=== PATIENT | male | born 2000 | race Caucasian/White ===

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

== ENCOUNTER 2020-09-19 16:36 | Outpatient (CLI) | payer OTHER | END 2020-09-19 16:37 | disposition home or self-care (01) | LOC: COV 16:36 | PROVIDERS: ATTEND Family Medicine | DX: Z20.828 Contact with and (suspected) exposure to other viral communicable diseases (principal) ==

== ENCOUNTER 2021-02-01 00:26 | Emergency (ER) | payer OTHER ==
[2021-02-01] MEDS ORDERED: SILVER SULFADIAZINE CREAM 25 GM TUBE TOP STA (00:50)
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
[2021-02-01 01:44] VITALS: BP 132/61
== END 2021-02-01 01:44 | disposition home or self-care (01) ==
LOC: ED 00:26
DX: T22.211A Burn of second degree of right forearm, initial encounter (principal); T23.251A Burn of second degree of right palm, initial encounter; T22.111A Burn of first degree of right forearm, initial encounter; T23.151A Burn of first degree of right palm, initial encounter; W01.0XXA Fall on same level from slipping, tripping and stumbling without subsequent striking against object, initial encounter; X02.8XXA Other exposure to controlled fire in building or structure, initial encounter; Y93.9 Activity, unspecified; Y92.89 Other specified places as the place of occurrence of the external cause
CPT/HCPCS: 99282; A9270

== ENCOUNTER 2022-01-09 16:22 | Observation (INO) | payer OTHER ==
[2022-01-09 16:36] LABS: BASOPHILS % (AUTO) 0.2 %; EOSINOPHILS % (AUTO) 0.4 %; HCT - HEMATOCRIT 47.1 % (42.0-52.0); HGB - HEMOGLOBIN 16.1 g/dL (14.0-18.0); LYMPHOCYTES # (AUTO) 3.5 10^3/uL (1.5-3.5); LYMPHOCYTES % (AUTO) 32.7 %; MEAN CORPUSCULAR HEMOGLOBIN 30.2 pg (27.0-31.0); MEAN CORPUSCULAR HGB CONC 34.2 g/dL (32.0-36.0); MEAN CORPUSCULAR VOLUME 88.4 fL (80.0-94.0); MEAN PLATELET VOLUME 9.5 fL (7.4-11.4); MONOCYTES # (AUTO) 0.5 10^3/uL (0.0-1.0); MONOCYTES % (AUTO) 4.9 %; NEUTROPHILS # (AUTO) 6.6 10^3/uL (1.5-6.6); NEUTROPHILS % (AUTO) 61.6 %; PLT - PLATELET COUNT 249 10^3/uL (130-450); RED BLOOD COUNT 5.33 10^6/uL (4.70-6.10); WHITE BLOOD COUNT 10.7 x10^3/uL (4.8-10.8)
--- NOTE | 2022-01-09 16:45 | ED Physician Documentation ---
PD HPI ABD PAIN - Stated complaint Stated Complaint: R SIDE ABD PX - Chief complaint Chief Complaint: Abd Pain - History obtained from History obtained from: Patient - Additional information Additional information: RLQ pain x7 days ago. Started just feeling uneasy, but more pain starting Wednesday, 5 days ago. Radiates towards umbilicus. Constant twisting/pressure sensation. 3/10 pain. Worse with flat, jumping or upright position. Btter with heat and position. Increased pressure with urinartion but no dysuria. Had some loose stools without diarrhea. Pain worse yesterday. Review of Systems Ten Systems: 10 systems reviewed and negative Constitutional: denies: Fever, Chills GI: reports: Abdominal Pain. denies: Nausea, Vomiting PD PAST MEDICAL HISTORY - Past Surgical History Past Surgical History: Yes HEENT: Tonsil/Adenoidectomy - Present Medications Home Medications: Ambulatory Orders Medication Instructions Recorded Confirmed No Known Home Medications 01/09/22 01/09/22 - Allergies Allergies/Adverse Reactions: Allergies Allergy/AdvReac Type Severity Reaction Status Date / Time No Known Drug Allergies Allergy Verified 01/09/22 16:31 - Social History Does the pt smoke?: No Smoking Status: Never smoker Does the pt drink ETOH?: No Does the pt have substance abuse?: No - Immunizations Immunizations are current?: Yes PD ED PE NORMAL - Vitals Vital signs reviewed: Yes - General General: Alert and oriented X 3, No acute distress - HEENT HEENT: PERRL, EOMI - Neck Neck: Supple, no meningeal sign, No bony TTP - Cardiac Cardiac: RRR, No murmur - Respiratory Respiratory: No respiratory distress, Clear bilaterally - Abdomen Abdomen: Normal bowel sounds, Soft, Other (Focally tender in the right lower quadrant with positive Rovsing sign and positive heeltap, negative obturator sign.) - Back Back: No CVA TTP, No spinal TTP - Derm Derm: Normal color, Warm and dry - Extremities Extremities: No edema, No calf tenderness / cord - Neuro Neuro: Alert and oriented X 3, Normal speech Results - Vitals Vitals: Vital Signs - 24 hr 01/09/22 01/09/22 16:25 16:37 Temperature 36.8 C Heart Rate 75 Respiratory 19 14 Rate Blood Pressure 134/85 H O2 Saturation 100 Oxygen O2 Source Room air - Labs Labs: Laboratory Tests 01/09/22 01/09/22 01/09/22 16:30 16:30 16:47 WBC 10.7 RBC 5.33 Hgb 16.1 Hct 47.1 MCV 88.4 MCH 30.2 MCHC 34.2 RDW 12.0 Plt Count 249 MPV 9.5 Neut # (Auto) 6.6 Lymph # (Auto) 3.5 [place] # (Auto) 0.5 Eos # (Auto) 0.0 Baso # (Auto) 0.0 Absolute Nucleated RBC 0.00 Nucleated RBC % 0.0 Sodium 138 Potassium 3.8 Chloride 101 Carbon Dioxide 28 Anion Gap 9.0 BUN 16 Creatinine 0.8 Estimated GFR (MDRD) 122 Glucose 92 Calcium 9.4 Total Bilirubin 0.9 AST 22 ALT 34 Alkaline Phosphatase 59 Total Protein 8.0 Albumin 4.6 Globulin 3.4 Albumin/Globulin Ratio 1.4 Lipase 27 Urine Color YELLOW Urine Clarity CLEAR Urine pH 6.0 Ur Specific [place] 1.025 Urine Protein NEGATIVE Urine Glucose (UA) NEGATIVE Urine Ketones TRACE Urine Occult Blood NEGATIVE Urine Nitrite NEGATIVE Urine Bilirubin NEGATIVE Urine Urobilinogen 0.2 (NORMAL) Ur Leukocyte Esterase NEGATIVE Ur Microscopic Review NOT INDICATED Urine Culture Comments NOT INDICATED PD MEDICAL DECISION MAKING - ED course ED course: This is a young man with potential appendicitis and on CT my "wet read" shows unruptured appendicitis. I spoke with Dr. Hays, our on-call surgeon around 5:20 PM and he will come and see the patient. Departure - Departure Disposition: ED Transfer to [facility] Clinical Impression: Appendicitis Qualifiers: Appendicitis type: acute appendicitis Acute appendicitis type: with localized peritonitis Appendicitis gangrene presence: without gangrene Appendicitis perforation presence: without perforation Appendicitis abscess presence: without abscess Qualified Code(s): K35.30 - Acute appendicitis with localized peritonitis, without perforation or gangrene Condition: Stable
[2022-01-09 16:48] LABS: ALBUMIN 4.6 g/dL (3.2-5.5); ALBUMIN/GLOBULIN RATIO 1.4 (1.0-2.2); BILIRUBIN,TOTAL 0.9 mg/dL (0.2-1.0); CALCIUM 9.4 mg/dL (8.5-10.3); CREATININE 0.8 mg/dL (0.6-1.2); POTASSIUM 3.8 mmol/L (3.5-5.0)
[2022-01-09 16:53] LABS: BILIRUBIN,URINE NEGATIVE (NEGATIVE); GLUCOSE, URINE (UA) NEGATIVE (NEGATIVE); KETONES,URINE (UA) TRACE mg/dL (NEGATIVE); LEUKOCYTE ESTERASE, URINE NEGATIVE (NEGATIVE); NITRITE,URINE NEGATIVE (NEGATIVE); OCCULT BLOOD,URINE NEGATIVE (NEGATIVE); PROTEIN,URINE NEGATIVE (NEGATIVE); UROBILINOGEN,URINE 0.2 (NORMAL) E.U./dL (NORMAL)
[2022-01-09 16:54] LABS: CLARITY,URINE CLEAR (CLEAR)
[2022-01-09] MEDS ORDERED: IOVERSOL 320 100 ML VIAL IVP ONE ×2 (17:06→17:17)
[2022-01-09] MEDS ORDERED: PIPERACILLIN/TAZOBACTAM 3.375 GM in SODIUM CHLORIDE 0.9% MINIBAG 100 ML IV STA ×2 (17:19→18:27)
--- NOTE | 2022-01-09 18:02 | CT Report ---
PROCEDURE: Abdomen/Pelvis W INDICATIONS: RLQ pain CONTRAST: IV CONTRAST: Optiray 320 ml: 100 PO CONTRAST: *NO PO CONTRAST TECHNIQUE: After the administration of intravenous contrast, 5 mm thick sections acquired from the diaphragms to the symphysis. 5 mm thick coronal and sagittal reformats were acquired. For radiation dose reducti on, the following was used: automated exposure control, adjustment of mA and/or kV according to osiel ent size. COMPARISON: CT abdomen pelvis 08/01/2013. FINDINGS: Image quality: Excellent. ABDOMEN: Lung bases: There is a small pulmonary nodule in the left lower lobe measuring up to 0.5 cm which mary ears unchanged from the prior study. Heart size is normal. Solid organs: Evaluation of the liver demonstrates no focal hepatic lesions. Gallbladder appears wit hin normal limits without calcified gallstones. Biliary system is non dilated. The spleen is normal in size. Pancreas enhances normally without peripancreatic fat stranding or fluid collections. No ad renal nodules. Kidneys demonstrate no hydronephrosis. Peritoneum and bowel: Bowel loops demonstrate normal wall thickness and caliber. The appendix is th ick-walled, measuring up to 1 cm in diameter, with appendiceal fat stranding consistent with acute ap pendicitis. No free fluid or air. No abscess collection. Nodes and vessels: No retroperitoneal or mesenteric adenopathy by size criteria. Aorta and inferior vena cava are normal in size. Miscellaneous: No ventral hernias. PELVIS: Genitourinary: Bladder wall thickness is normal. Miscellaneous: No inguinal hernias or adenopathy. Bones: No suspicious bony lesions. No vertebral body compression fractures. IMPRESSION: 1. Findings consistent with acute appendicitis without evidence of perforation. Findings discussed with Dr. Henderson on 01/09/2022 at 5:57 PM. Reviewed by: Mitchell Jones MD on 01/09/2022 6:01 PM PST Approved by: Mitchell Jones MD on 01/09/2022 6:01 PM PST Station ID: [id number]
--- NOTE | 2022-01-09 18:12 | SURGERY HX AND PHYSICAL(T) ---
Surgical History & Physical - Chief Complaint/HPI Chief Complaint: abdominal pain History of Present Illness: 21 M with hx tonsillectomy who presents with abdominal pain. Pain started ~01/03 or 01/04, vague but in RLQ. Wednesday worsened and slowly worsened since then and more focal. Still only 2-3/10 intensity at rest, aggravated with activity. No f/c or n/v but does endorse looser stools the last few days. Interestingly, says he has had similar episodes twice in his life, once around 10 yoa and again in his teens, but was given different diagnoses (presumably gastroenteritis). In ED he is afebrile, normotensive, not tachycardic. Pain mild but focal RLQ. Labs notable for WBC 10.7, CT with acute uncomplicated appendicitis. - PMH/PSH/Social Hx Does the pt have a hx of MRSA?: No Eyes, Ears, Nose, Throat: Other (hx tonsillectomy) Eyes Ears Nose Throat (EENT): Tonsil/Adenoidectomy Smoking Status: Never smoker Does the pt drink ETOH?: No Does the pt have substance abuse?: No - Home Meds and Allergies Home Medications: No Known Home Medications 01/09/22 Allergies/Adverse Reactions: Allergies Allergy/AdvReac Type Severity Reaction Status Date / Time No Known Drug Allergies Allergy Verified 01/09/22 16:31 - Review of Systems Constitutional: No: Fever, Chills HEENT: No: Headaches, Visual changes Skin: No: Jaundice Cardiac: No: CHF, MO, Syncope Gastrointestinal: Abdominal pain, Other (loose stool). No: Nausea, Vomiting Gentinourinary: No: Frequency, Burning Neurological: No: Dizziness, Headache Musculoskeletal: No: Muscle pain, Back pain Hematologic: No: Anemia Psychiatric: No: Anxiety Endocrinologic: No: Polyuria Allergies: No: Asthma - Vital Signs Heart Rate: 75 Blood Pressure: 134/85 Temperature: 36.8 C Respiratory Rate: 14 O2 Saturation: 100 Weight (kg): 90.718 kg Height: 1.85 m - Physical Exam General Appearance: positive: No acute distress Eyes Bilatera: positive: EOMI ENT: positive: Other (atraumatic, normocephalic) Respiratory: positive: No respiratory distress Cardiovascular: positive: Regular rate & rhythm Peripheral Pulses: positive: 2+ Abdomen: positive: Other (soft, non-distended, mild TTP in RLQ, no rebound or guarding, no scars) Skin: positive: Warm, Dry Extremities: negative: Pedal edema Neurologic/Psychiatric: positive: Oriented x3, Other (appropriate mood and affect) - Patient Review Patient Review: Problems were reviewed with the patient during this visit. Medications were reviewed with the patient during this visit. Allergies were reviewed this patient during this visit. Pertinent Tests Reviewed: All pertitent test for this patient were reviewed. - Assessment & Plan Assessment and Plan: 21 yo M presents with 5 days abd pain, found to have uncomplicated acute appendicitis on CT. - clears until midnight then NPO after midnight - started zosyn in ED, will continue - IV pain meds - zofran prn - plan to OR in the am for lap appy - risks including but not limited to bleeding, pain, infection, damage to surrounding structures, post-op abscess discussed with patient who consents to proceed. Informed consent signed in ED and left in chart. Adarsh Hays General Surgery
[2022-01-09] MEDS ORDERED: SODIUM CHLORIDE FLUSH 0.9% 10 ML SYRINGE IVP PRN (18:21)
[2022-01-09] MEDS ORDERED: ONDANSETRON 4 MG/2 ML VIAL IVP PRN ×2 (18:21→20:24)
[2022-01-09] MEDS ORDERED: MORPHINE 2 MG/ML CARPUJECT IVP PRN ×2 (18:21→20:24)
[2022-01-09] MEDS ORDERED: ACETAMINOPHEN 325 MG TABLET PO PRN (18:21)
[2022-01-09] MEDS: LACTATED RINGERS 1,000 ML IV SCH ×2 (19:17→22:45)
[2022-01-09] MEDS: HEPARIN 5,000 UNIT/ML VIAL SUBQ SCH (19:49)
[2022-01-09] MEDS ORDERED: MIDAZOLAM 2 MG/2 ML VIAL ONE ×2 (20:03→21:02)
[2022-01-09] MEDS ORDERED: fentaNYL 100 MCG/2 ML VIAL ONE ×2 (20:03→21:40)
[2022-01-09] MEDS ORDERED: LIDOCAINE-MPF 2% 5 ML VIAL ONE (20:05)
[2022-01-09] MEDS ORDERED: ROCURONIUM 50 MG/5 ML VIAL ONE (20:05)
[2022-01-09] MEDS ORDERED: ONDANSETRON 4 MG/2 ML VIAL ONE (20:05)
[2022-01-09] MEDS ORDERED: DEXAMETHASONE 4 MG/ML VIAL ONE (20:05)
[2022-01-09] MEDS ORDERED: PROPOFOL 200 MG/20 ML VIAL IVP ONE ×2 (20:05→21:40)
[2022-01-09] MEDS ORDERED: SUGAMMADEX 200 MG/2 ML VIAL IVP ONE (20:05)
[2022-01-09] MEDS ORDERED: SUCCINYLCHOLINE 200 MG/10 ML VIAL ONE (20:05)
[2022-01-09] MEDS ORDERED: LIDOCAINE 2%-EPI 1:100000 20 ML MDV ONE (20:07)
[2022-01-09] MEDS ORDERED: BUPIVACAINE 0.5% PF 10 ML VIAL ONE (20:07)
[2022-01-09] MEDS ORDERED: NALOXONE 0.4 MG/ML VIAL IVP PRN (20:24)
[2022-01-09] MEDS ORDERED: ePHEDrine 50 MG/ML VIAL IVP PRN (20:24)
[2022-01-09] MEDS ORDERED: fentaNYL 100 MCG/2 ML VIAL IVP PRN (20:24)
[2022-01-09] MEDS ORDERED: METOCLOPRAMIDE 10 MG/2 ML VIAL IVP PRN (20:24)
[2022-01-09] MEDS ORDERED: HYDROmorphone 0.5 MG/0.5 ML SYRINGE IVP PRN (20:24)
[2022-01-09] MEDS ORDERED: ATROPINE ABBOJECT 1 MG/10 ML SYRINGE IVP PRN (20:24)
--- NOTE | 2022-01-09 20:24 | ANESTHESIA ---
Pre-Anesthesia VS, & Labs - Diagnosis appendicitis - Procedure lap appendectomy Vital Signs: Temp Pulse Resp BP Pulse Ox 36.7 C 57 L 20 131/65 H 99 01/09/22 19:00 01/09/22 19:00 01/09/22 19:00 01/09/22 19:00 01/09/22 19:00 Height: 6 ft 1 in Weight (kg): 90 kg Body Mass Index: 26.2 BMI Classification: Overweight - NPO Other Last Fluid Intake: 2100 Last Food Intake: 1200 - Lab Results Current Lab Results: Laboratory Tests 01/09/22 16:30: Sodium 138, Potassium 3.8, Chloride 101, Carbon Dioxide 28, Anion Gap 9.0, BUN 16, Creatinine 0.8, Estimated GFR (MDRD) 122, Glucose 92, Calcium 9.4, Total Bilirubin 0.9, AST 22, ALT 34, Alkaline Phosphatase 59, Total Protein 8.0, Albumin 4.6, Globulin 3.4, Albumin/Globulin Ratio 1.4, Lipase 27 01/09/22 16:30: WBC 10.7, RBC 5.33, Hgb 16.1, Hct 47.1, MCV 88.4, MCH 30.2, MCHC 34.2, RDW 12.0, Plt Count 249, MPV 9.5, Neut # (Auto) 6.6, Lymph # (Auto) 3.5, [place] # (Auto) 0.5, Eos # (Auto) 0.0, Baso # (Auto) 0.0, Absolute Nucleated RBC 0.00, Nucleated RBC % 0.0 Fish Bones: 01/09/22 16:30 01/09/22 16:30 Home Medications and Allergies Home Medications: Ambulatory Orders No Known Home Medications 01/09/22 Active Medications Acetaminophen (Acetaminophen 325 Mg Tablet) 650 mg PO Q6HR PRN PRN Reason: Pain 1 to 4 Heparin Sodium (Porcine) (Heparin 5,000 Unit/Ml Vial) 5,000 unit SUBQ BID [facility] Last Admin: 01/09/22 19:49 Dose: Not Given Lactated Ringer's (Lr) 1,000 mls @ 100 mls/hr IV .Q10H [facility] Last Admin: 01/09/22 19:17 Dose: 100 mls/hr Piperacillin Sod/Tazobactam (Sod 3.375 gm/ Sodium Chloride) 100 mls @ 200 mls/hr IV Q6HR [facility]OVAN[facility] Morphine Sulfate (Morphine 2 Mg/Ml Carpuject) 1 mg IVP Q3HR PRN PRN Reason: Pain 8 to 10 Ondansetron HCl (Ondansetron 4 Mg/2 Ml Vial) 4 mg IVP Q6HR PRN PRN Reason: Nausea / Vomiting Sodium Chloride (Sodium Chloride Flush 0.9% 10 Ml Syringe) 10 ml IVP PRN PRN PRN Reason: NEEDED PER PROVIDER ORDERS Sodium Chloride (Sodium Chloride Flush 0.9% 10 Ml Syringe) 10 ml IVP 0100,0900,1700 YOVANNY No Known Home Medications 01/09/22 Allergies/Adverse Reactions: Allergies Allergy/AdvReac Type Severity Reaction Status Date / Time No Known Drug Allergies Allergy Verified 01/09/22 16:31 Anes History & Medical History - Anesthetic History Anesthesia Complications: reports: No previous complications Family history of Anesthesia Complications: Denies Family history of Malignant Hyperthermia: Denies - Medical History Cardiovascular: reports: None Pulmonary: reports: Other (vapes nicotine, marijuana) Gastrointestinal: reports: None Urinary: reports: None Neuro: reports: None Musculoskeletal: reports: None Endocrine/Autoimmune: reports: None Blood Disorders: reports: None Skin: reports: None Smoking Status: Current every day smoker Psychosocial: reports: Alcohol, Cannabis History of Cancer?: No - Surgical History Eyes Ears Nose Throat (EENT): reports: Tonsil/Adenoidectomy Exam General: Alert, Oriented x3, Cooperative Dental: WNL Mouth Openin Fingerbreadth Neck Mobility: Normal Mallampati classification: I Thyromental Distance: 4-6 cm Respiratory: Lungs clear Cardiovascular: Regular rate Plan Anesthesia Type: General Consent for Procedure(s) Verified and Reviewed: Yes Code Status: Attempt Resuscitation ASA classification: 2-Mild systemic disease Is this case an emergency?: Yes
[2022-01-09] MEDS ORDERED: LACTATED RINGERS 1,000 ML IV SCH (21:00)
[2022-01-09] MEDS ORDERED: BUPIVACAINE 0.5% PF 30 ML VIAL INFIL ONE ×2 (21:22)
[2022-01-09] MEDS ORDERED: ACETAMINOPHEN 1,000 MG/100 ML 100 ML IV ONE (21:23)
[2022-01-09] MEDS ORDERED: LIDOCAINE 2%-EPI 1:100000 20 ML MDV SUBQ ONE ×2 (21:23)
--- NOTE | 2022-01-09 21:50 | OPERATIVE REPORT ---
Operative Report - General Admit Date: 01/09/22 Procedure Date: 01/09/22 Planned Procedure: laparoscopic appendectomy Pre-Op Diagnosis: acute uncomplicated appendicitis Procedure Performed: laparoscopic appendectomy Post Op Diagnosis: acute uncomplicated appendicitis - Procedure Note Primary Surgeon: Adarsh Hays MD Anesthesia Technique: General ET tube IV Fluids (mL): 500 Estimated Blood Loss (mL): 2 Urine Output (mL): 350 Indications: Patient is a 21 yo M who presented with several days of abdominal pain. Pain was in RLQ and progressively worsened over that time course. He had no fevers or chills, no nausea or vomiting, but did have some loose stools. He presented to the ED for evaluation where he was HDS and exam was notable for mild RLQ TTP. Labs were notable for WBC 10.7, CT showed mildly inflamed and thickened appendix consistent with acute uncomplicated appendicitis. The pt was given antibiotics and plan was made to proceed to the OR for a laparoscopic appendectomy after careful review of the risks and benefits. Findings: mildly dilated and inflamed appendix, no gangrene, no free fluid, no evidence of perforation Complications: none - Other Other Information/Narrative: Narrative: After receiving preoperative antibiotics, the patient was taken to the operating room where SCDs were placed. After starting general anesthesia, a carrillo catheter was placed. The abdomen was prepped and draped in the usual fashion. Local anesthesia (0.5% bupivacaine) was administered at the infraumbilical skin. A transverse incision was made and carried down to the fascia, and the peritoneal cavity was entered with Tavia technique. A 12mm balloon trocar was placed and pneumoperitoneum achieved. A 5-30 laparoscope was introduced and the peritoneal contents were inspected. An inflamed appendix was noted in the right lower quadrant. Two more 5mm ports were placed under direct vision in the suprapubic and epigastric regions and the patient was placed in Trendelenburg and right side up. The appendix was grasped and dissected down to the base with a ligasure, and the mesoappendix was taken with the ligasure. The appendix was taken using a 45mm Endo-SANTA stapler intestinal load. The staple line was inspected demonstrating no bleeding or breakdown. The appendix specimen was removed with an endocatch bag, pneumoperitoneum evacuated, and trocars removed. The infraumbilical fascia was closed with 0-vicryl suture and skin closed with 4-0 monocryl and surgical glue. All instrument counts were reported correct. The patient was awakened and taken to the recovery room in good condition. Adarsh Hays MD
[2022-01-09] MEDS ORDERED: LACTATED RINGERS 700 ML IV ONE (21:59)
--- NOTE | 2022-01-09 22:32 | ANESTHESIA POST OP EVALUATION ---
Anesthesia Post Eval - Post Anesthesia Eval Vitals: Last Vital Signs Temp 36.7 C 01/09/22 22:20 Pulse 80 01/09/22 22:20 Resp 16 01/09/22 22:20 BP 114/56 L 01/09/22 22:20 Pulse Ox 100 01/09/22 22:20 CV Function Including HR & BP: Stable Pain Control: Satisfactory Nausea & Vomiting: Negative Mental Status: Baseline Respiratory Status: Airway Patent Hydration Status: Satisfactory Anesthesia Complications: None
[2022-01-09] MEDS: HYDROcod/ACETAM 5/325 MG TABLET PO PRN (22:44)
[2022-01-09] MEDS: PIPERACILLIN/TAZOBACTAM 3.375 GM in SODIUM CHLORIDE 0.9% MINIBAG 100 ML IV SCH (23:58)
[2022-01-10] MEDS: SODIUM CHLORIDE FLUSH 0.9% 10 ML SYRINGE IVP SCH ×2 (00:05→05:46)
[2022-01-10] MEDS: HYDROcod/ACETAM 5/325 MG TABLET PO PRN (04:49)
[2022-01-10] MEDS: PIPERACILLIN/TAZOBACTAM 3.375 GM in SODIUM CHLORIDE 0.9% MINIBAG 100 ML IV SCH (05:44)
[2022-01-10] MEDS: HEPARIN 5,000 UNIT/ML VIAL SUBQ SCH (08:24)
--- NOTE | 2022-01-10 08:34 | DISCHARGE SUMMARY ---
"Discharge Summary Admit Date: 01/09/22 Discharge Date: 01/10/22 Discharging Provider: Adarsh Hays MD Code Status: Attempt Resuscitation Condition at Discharge: Good Discharge Disposition: 01 Home, Self Care - DIAGNOSES Admission Diagnoses: acute uncomplicated appendicitis Discharge Diagnoses with Status of Each Condition: acute uncomplicated appendicitis; resolved (s/p laparoscopic appendectomy) - HPI History of Present Illness: Per Admission H&P: 21 M with hx tonsillectomy who presents with abdominal pain. Pain started ~01/03 or 01/04, vague but in RLQ. Wednesday worsened and slowly worsened since then and more focal. Still only 2-3/10 intensity at rest, aggravated with activity. No f/c or n/v but does endorse looser stools the last few days. Interestingly, says he has had similar episodes twice in his life, once around 10 yoa and again in his teens, but was given different diagnoses (presumably gastroenteritis). In ED he is afebrile, normotensive, not tachycardic. Pain mild but focal RLQ. Labs notable for WBC 10.7, CT with acute uncomplicated appendicitis. - CONSULTS | PROCEDURES Procedures: laparoscopic appendectomy - HOSPITAL COURSE Hospital Course: Pt was placed in observation status and started on zosyn with plan to ultimately proceed to the operating room for lap appy. He was taken to the OR for lap appy on 01/09/22 which he underwent successfully. Post-op the patient was started on a general diet which he tolerated and IV fluids were discontinued. He was transitioned to PO pain meds which gave adequate pain control. He was ambulating and voiding without issue. He was discharged to home on POD1 with instructions to call to schedule a follow up appointment with either Dr. Urbano or Dr. Ortiz for 2 weeks post-op to review pathology and ensure adequate recovery. Return precautions were given. - ALLERGIES Allergies/Adverse Reactions: Allergies Allergy/AdvReac Type Severity Reaction Status Date / Time No Known Drug Allergies Allergy Verified 01/09/22 16:31 - MEDICATIONS Home Medications: Ambulatory Orders Medication Instructions Recorded Confirmed No Known Home Medications 01/09/22 01/09/22 - PHYSICAL EXAM AT DISCHARGE General Appearance: positive: No acute distress Eyes Bilateral: positive: EOMI Respiratory: positive: Breath sounds nml Cardiovascular: positive: Regular rate & rhythm Abdomen: positive: Other (soft, non-distended, appropriately TTP around incisions, rest of abdomen non-tender; all incisions CDI with skin glue in place) Skin: positive: Warm, Dry Extremities: positive: No pedal edema Neurologic/Psychiatric: positive: Oriented x3, Mood/affect nml - LABS Result Diagrams: 01/09/22 16:30 01/09/22 16:30 - DIAGNOSTIC IMAGING Diagnostic Imaging Results: See rad report - FOLLOW UP Follow Up: Pt to call to schedule follow up appt with Dr. Urbano or Dr. Ortiz for 2 weeks post-op. - TIME SPENT Time Spent in Discharge (Minutes): 30"
[2022-01-10 08:37] VITALS: BP 121/60
--- NOTE | 2022-01-10 08:43 | Discharge Plan ---
Discharge Plan Problem Reviewed?: Yes Disposition: Home, Self Care Condition: Good Prescriptions: HYDROcod/ACETAM 5/325 [[place] 5/325] 1 tab PO Q6HR PRN #20 tablet PRN Reason: Pain Diet: Regular Activity Restrictions: (2 weeks off of work entirely; light duty only upon return; no lifting more than a gallon of milk for 4-6 weeks) Shower Restrictions: Yes (ok to shower 01/11/22; no scrubbing incisions; no soaking in tubs, etc.) Driving Restrictions: Yes (do no drive while on [place]) Weight Bearing: Full Weight Additional Instructions or Follow Up instructions: You are being discharged with a narcotic pain medication called [place]. Do not take extra Tylenol with this as it already contains Tylenol. You should not drive or drink alcohol on this medication. You should make sure to stay hydrated and can consider taking a stool softener called docusate (colace), as narcotics can cause constipation. You may shower on 01/11/22. You should not bathe or soak incision until cleared by your surgeon. 2 weeks off work, light duty upon return, no heavy lifting 4-6 weeks. If you experience worsening pain, pus from incisions, redness at incisions, fevers, chills or other concerning symptoms please return to the emergency department for evaluation. No Smoking: If you smoke, Please STOP! Call for help. Follow-up with: Carolyne Urbano MD [Provider Admit Priv/Credential] - Willard Ortiz MD [Provider Admit Priv/Credential] -
== END 2022-01-10 09:48 | disposition home or self-care (01) ==
LOC: ED 16:22 → MS2 18:21
PROVIDERS: ADMIT Surgery; ATTEND Surgery
PROC: 0DTJ4ZZ Resection of Appendix, Percutaneous Endoscopic Approach (ICD-10-PCS; principal; 2022-01-09 20:00)
DX: K35.80 Unspecified acute appendicitis (principal); Z20.822 Contact with and (suspected) exposure to COVID-19; F17.200 Nicotine dependence, unspecified, uncomplicated
CPT/HCPCS: 36415; 44970; 74177; 80053; 81003; 83690; 85025; 87635; 96365; 99284; 99285; A9270; J0131; J0330; J7120; Q9967; 81001; 87086